=== PATIENT | female | born 1950 | race Caucasian/White ===

== ENCOUNTER → 2018-12-28 | Day surgery (SDC) | payer MEDICARE, BC ==
[2018-12-24 11:43] LABS: BASOPHILS # (AUTO) 0.1 (0.0-0.1); BASOPHILS % 0.6 % (0.0-1.0); EOSINOPHILS # (AUTO) 0.1 (0.0-0.4); EOSINOPHILS % 1.1 % (0.0-6.0); HEMATOCRIT 44.7 % (34.2-44.1); LYMPHOCYTES # (AUTO) 1.8 (1.0-3.2); MEAN CORPUSCULAR HEMOGLOBIN 25.2 pg (28-32); MEAN CORPUSCULAR HGB CONC 31.3 g/dL (31-35); MEAN CORPUSCULAR VOLUME 80.5 fL (81-99); MONOCYTES # (AUTO) 0.6 (0.2-0.8); MONOCYTES % 5.9 % (4.4-11.3); NEUTROPHILS # (AUTO) 6.9 (2.1-6.9); NEUTROPHILS % 73.1 % (38.7-80.0); PLATELET COUNT 375 x10e3/uL (140-360); RED BLOOD COUNT 5.55 x10e6/uL (3.6-5.1); RED CELL DISTRIBUTION WIDTH 14.2 % (11.7-14.4)
[~2018-12-28] MED LIST: AMLODIPINE BESY10 MG PO; BENEFIBER1 EAC1 PO; BENICAR20 MG PO; HYOSCYAMINE 0.125 MG TAB ONE; HYOSCYAMINE SULFATE 0.5 MG/ML INJ ONE; LIDOCAINE HCL 2% LOCAL INJ 5 ML SDV VIAL INJ ONE; LOVASTATIN40 MG PO; MIDAZOLAM HCL 2 MG/2 ML VIAL ONE; PANTOPRAZOLE SO40 MG PO; PROPOFOL IV EMULSION 10 MG/ML 50 ML VIAL ONE; Z.0.CALCIUM 500+VI1 PO; Z.0.DEXILANT60 MG PO; [UNRECOGNIZED DRUG - OTHER] PO
--- OUTSIDE RECORDS SUMMARY | 2018-12-28 08:57 | XMS REPORT ---
Author Author [facility] Address Unknown Phone Unavailable Care Team Providers Care Family Practice Doctor Name Role Phone Unavailable Unavailable Problems This patient has no known problems. Allergies, Adverse Reactions, Alerts This patient has no known allergies or adverse reactions. Medications This patient has no known medications. Results Test Description Test Time Test Comments Text Results Atomic Results Result Comments SCR MAMM BILATERAL BEBA CAD DIGITAL 2018-07-05 16:35:06 - SCR MAMM BILATERAL BEBA CAD DIGITALBILATERAL DIGITAL SCREENING MAMMOGRAM 3D/2D WITH CAD: 07/05/2018CLINICAL: Asymptomatic. Digital breast tomosynthesis was performed in addition to routine CC and MLO views. Current mammographic images were evaluated by either a [facility] or a [facility] ImageChecker CAD (computer aided detection system). Comparison is made to exams dated 06/29/2017 mammogram, 2016 mammogram, and 06/08/2015 mammogram - [facility]-. There are scattered fibroglandular tissues in both breasts. No suspicious mass, architectural distortion, malignant type calcification, or lymph node abnormality detected. Breast architecture is stable compared to prior exams.IMPRESSION: NEGATIVEThere is no mammographic evidence of malignancy. Resume annual screening mammography in one year. Valente lopez/penrad:07/05/2018 16:35:06 Care Provider: Zahira OSBORN, [facility]-FWletter sent: BIRADS 1-2 Normal Mammogram BI-RADS: 1 Negative
[2018-12-28 15:15] VITALS: BP 132/88
--- NOTE | 2018-12-28 15:34 | Operative Report ---
DATE OF PROCEDURE: 12/28/2018 SURGEON: Doroteo Oleary MD PROCEDURE: Colonoscopy and polypectomy. INDICATIONS FOR COLONOSCOPY: Surveillance colonoscopy, personal history of colon polyps. MEDICATIONS: The patient was done under MAC, please see anesthesiologist's note. PROCEDURE IN DETAIL: With the patient in left lateral decubitus position, the flexible fiberoptic Olympus colonoscope was inserted into the rectum with ease and advanced all the way to the cecum. There was a minute polyp noted in the cecum that was removed per cold biopsy forceps. The ascending, transverse and descending grossly appeared to be within normal limits. Some diverticular disease was noted in the distal descending and the sigmoid colon. One polyp was snared. One polyp was hot biopsied from the distal sigmoid colon. The rectum grossly appeared to be within normal limits. The scope was then retroflexed into the distal rectum and small internal hemorrhoids were noted, none of which was actively bleeding. The scope was then straightened out, it was subsequently withdrawn. The patient tolerated the procedure well. IMPRESSION: 1. Cecal polyp, removed per the cold biopsy forceps. 2. Diverticulosis. 3. Sigmoid colon polyps x2, one snared and one hot biopsied. 4. Internal hemorrhoids, none actively bleeding. PLAN: Follow up histology. Initiate high-fiber, low-fat diet. Initiate high-fiber supplement. The patient might benefit from a followup colonoscopy in 5 years. Doroteo Oleary MD [facility] [place]/JONEL /[id number] cc: Martinez Jung MD
== END | disposition home or self-care (01) ==
LOC: OR 08:54
PROVIDERS: ATTEND Internal Medicine Gastroenterology
DX: Z09 Encounter for follow-up examination after completed treatment for conditions other than malignant neoplasm (principal); D12.0 Benign neoplasm of cecum; K57.30 Diverticulosis of large intestine without perforation or abscess without bleeding; K64.8 Other hemorrhoids; K21.9 Gastro-esophageal reflux disease without esophagitis; I10 Essential (primary) hypertension; E78.00 Pure hypercholesterolemia, unspecified; Z88.2 Allergy status to sulfonamides; Z01.810 Encounter for preprocedural cardiovascular examination; Z01.812 Encounter for preprocedural laboratory examination
CPT/HCPCS: 36415; 45380; 45384; 45385; 85025; 88305; 93005; J1980; J2001; J2250; J2704; 45378

== ENCOUNTER 2020-11-11 10:38 | Inpatient (IN) | payer MEDICARE, BC ==
[~2020-11-11] VITALS: Ht 154.9 cm; Wt 67.6 kg
[~2020-11-11 10:38] MED LIST changes: -HYOSCYAMINE 0.125 MG TAB ONE; -HYOSCYAMINE SULFATE 0.5 MG/ML INJ ONE; -LIDOCAINE HCL 2% LOCAL INJ 5 ML SDV VIAL INJ ONE; -MIDAZOLAM HCL 2 MG/2 ML VIAL ONE; -PROPOFOL IV EMULSION 10 MG/ML 50 ML VIAL ONE
[2020-11-11] MEDS ORDERED: SODIUM CHLORIDE 0.9% 1000ML 1,000 ML IV SCH ×2 (11:00→12:30)
[2020-11-11 11:20] LABS: BASOPHILS % 0.4 % (0.0-1.0); HEMATOCRIT 44.9 % (34.2-44.1); HEMOGLOBIN 14.4 g/dL (12.0-16.0); LYMPHOCYTES # (AUTO) 0.9 (1.0-3.2); LYMPHOCYTES % 8.4 % (18.0-39.1); MEAN CORPUSCULAR HEMOGLOBIN 26.7 pg (28-32); MEAN CORPUSCULAR HGB CONC 32.1 g/dL (31-35); MEAN CORPUSCULAR VOLUME 83.3 fL (81-99); MONOCYTES # (AUTO) 0.7 (0.2-0.8); MONOCYTES % 6.4 % (4.4-11.3); NEUTROPHILS # (AUTO) 9.1 (2.1-6.9); NEUTROPHILS % 84.6 % (38.7-80.0); PLATELET COUNT 310 x10e3/uL (140-360); RED BLOOD COUNT 5.39 x10e6/uL (3.6-5.1); RED CELL DISTRIBUTION WIDTH 14.1 % (11.7-14.4)
[2020-11-11 12:04] LABS: ALBUMIN 3.7 g/dL (3.5-5.0); CREATININE, SERUM 5.64 mg/dL (0.57-1.11)
[2020-11-11] MEDS ORDERED: IOPAMIDOL 370 MG/ML 200 ML INFUS..BTL INJ ONE (12:11)
[2020-11-11] MEDS ORDERED: SODIUM CHLORIDE 0.9% 50ML 0 ML ONE (12:11)
[2020-11-11] MEDS ORDERED: ONDANSETRON HCL INJ 2MG/ML 2ML 2 MG/ML VIAL IV PRN (12:30)
[2020-11-11 15:09] LABS: CLARITY,URINE SL CLOUDY (CLEAR); COLOR,URINE YELLOW (YELLOW); KETONES,URINE NEGATIVE (NEGATIVE); LEUKOCYTE ESTERASE ,URINE NEGATIVE (NEGATIVE); NITRITE,URINE NEGATIVE (NEGATIVE); PROTEIN,URINE DIPSTICK 1+ (NEGATIVE); URINE UROBILINOGEN 0.2 mg/dL (0.2 - 1)
[2020-11-11 15:23] LABS: AMORPHOUS SEDIMENT,URINE MODERATE (FEW); BACTERIA,URINE MODERATE /HPF; EPITHELIAL CELLS,URINE MODERATE /LPF; RBC,URINE 0-5 /HPF (0-5)
[2020-11-11 15:40] VITALS: BP 114/42
[2020-11-11] MEDS: SODIUM CHLORIDE 0.9% 1000ML 1,000 ML IV SCH ×2 (15:49→19:10)
[2020-11-11 20:00] VITALS: BP 93/38
[2020-11-11 20:45] VITALS: BP 93/38
[2020-11-11] MEDS ORDERED: SODIUM CHLORIDE 0.9% 500ML 500 ML IV ONE (22:45)
[2020-11-11] MEDS: LOPERAMIDE HCL 2 MG CAP PO PRN (22:57)
[2020-11-12] VITALS (8 sets, daily range): BP systolic 93–158; BP diastolic 44–68
[2020-11-12] MEDS ORDERED: METOCLOPRAMIDE HCL 10 MG/2ML VIAL IV STA (00:36)
[2020-11-12] MEDS ORDERED: PANTOPRAZOLE 40 MG 10ML VIAL IV STA (00:36)
[2020-11-12] MEDS ORDERED: PANTOPRAZOL 40MG/SOD CHL 0.9% 250 ML IV SCH (00:45)
[2020-11-12] MEDS: PANTOPRAZOL 40MG/SOD CHL 0.9% 50 ML IV SCH ×5 (02:02→21:18)
[2020-11-12] MEDS: SODIUM CHLORIDE 0.9% 1000ML 1,000 ML IV SCH ×2 (03:01→09:30)
[2020-11-12 04:59] LABS: BASOPHILS % 0.5 % (0.0-1.0); HEMATOCRIT 38.8 % (34.2-44.1); HEMOGLOBIN 12.2 g/dL (12.0-16.0); LYMPHOCYTES # (AUTO) 0.6 (1.0-3.2); LYMPHOCYTES % 9.9 % (18.0-39.1); MEAN CORPUSCULAR HEMOGLOBIN 26.7 pg (28-32); MEAN CORPUSCULAR HGB CONC 31.4 g/dL (31-35); MEAN CORPUSCULAR VOLUME 84.9 fL (81-99); MONOCYTES # (AUTO) 0.5 (0.2-0.8); MONOCYTES % 7.3 % (4.4-11.3); NEUTROPHILS # (AUTO) 5.1 (2.1-6.9); NEUTROPHILS % 82.1 % (38.7-80.0); PLATELET COUNT 200 x10e3/uL (140-360); RED BLOOD COUNT 4.57 x10e6/uL (3.6-5.1); RED CELL DISTRIBUTION WIDTH 13.9 % (11.7-14.4)
[2020-11-12] MEDS: METOCLOPRAMIDE HCL 10 MG/2ML VIAL IV SCH ×3 (05:25→17:52)
[2020-11-12 05:27] LABS: ANION GAP 15.8 mmol/L (8-16); CALCIUM 8.1 mg/dL (8.4-10.2); CREATININE, SERUM 2.85 mg/dL (0.57-1.11); POTASSIUM 3.8 mmol/L (3.5-5.1)
[2020-11-12] MEDS: METRONIDAZOLE 500MG/NS 100ML 100 ML IV SCH ×3 (05:30→21:34)
[2020-11-12 06:12] LABS: MAGNESIUM 1.8 MG/DL (1.3-2.1); PHOSPHORUS 3.6 MG/DL (2.3-4.7)
[2020-11-12 07:17] LABS: BAND NEUTROPHILS % (MANUAL) 12 %; LYMPHOCYTES % (MANUAL) 11 % (19-48); MONOCYTES % (MANUAL) 3 % (3.4-9.0); NEUTROPHILS % (MANUAL) 70 % (40-74)
[2020-11-12 07:18] LABS: PLATELET ESTIMATE ADEQUATE; PLATELET MORPHOLOGY COMMENT NORMAL; RBC MORPHOLOGY COMMENT NORMAL
[2020-11-12] MEDS: DICYCLOMINE HCL 10 MG CAP PO SCH ×3 (09:00→21:18)
[2020-11-12] MEDS ORDERED: SODIUM CHLORIDE 0.9% 500ML 500 ML IV ONE (10:30)
[2020-11-12] MEDS: SODIUM BICARBONATE 8.4% SYRING 150 ML in DEXTROSE 5% 1,000 ML IV SCH ×3 (11:15→22:45)
[2020-11-12] MEDS: LOPERAMIDE HCL 2 MG CAP PO PRN ×2 (12:30→18:04)
[2020-11-13] VITALS (8 sets, daily range): BP systolic 100–115; BP diastolic 48–54
[2020-11-13] MEDS ORDERED: DICYCLOMINE HCL 20 MG TAB PO STA (00:23)
[2020-11-13] MEDS: METOCLOPRAMIDE HCL 10 MG/2ML VIAL IV SCH ×4 (00:30→17:31)
[2020-11-13] MEDS: LOPERAMIDE HCL 2 MG CAP PO SCH ×4 (00:44→18:20)
[2020-11-13] MEDS: PANTOPRAZOL 40MG/SOD CHL 0.9% 50 ML IV SCH ×5 (03:10→22:08)
[2020-11-13 05:30] LABS: BASOPHILS % 0.6 % (0.0-1.0); EOSINOPHILS # (AUTO) 0.1 (0.0-0.4); EOSINOPHILS % 1.4 % (0.0-6.0); HEMOGLOBIN 11.6 g/dL (12.0-16.0); LYMPHOCYTES # (AUTO) 0.8 (1.0-3.2); MEAN CORPUSCULAR HEMOGLOBIN 27.2 pg (28-32); MEAN CORPUSCULAR HGB CONC 32.2 g/dL (31-35); MEAN CORPUSCULAR VOLUME 84.3 fL (81-99); MONOCYTES # (AUTO) 0.5 (0.2-0.8); MONOCYTES % 12.9 % (4.4-11.3); NEUTROPHILS # (AUTO) 2.2 (2.1-6.9); NEUTROPHILS % 61.8 % (38.7-80.0); PLATELET COUNT 206 x10e3/uL (140-360); RED BLOOD COUNT 4.27 x10e6/uL (3.6-5.1)
[2020-11-13] MEDS: METRONIDAZOLE 500MG/NS 100ML 100 ML IV SCH ×3 (05:49→21:45)
[2020-11-13 05:55] LABS: ALBUMIN 2.8 g/dL (3.5-5.0); ALBUMIN/GLOBULIN RATIO 0.9 (0.8-2.0); ANION GAP 11.5 mmol/L (8-16); CALCIUM 8.5 mg/dL (8.4-10.2); CREATININE, SERUM 1.49 mg/dL (0.57-1.11); POTASSIUM 3.5 mmol/L (3.5-5.1)
[2020-11-13 07:35] LABS: LYMPHOCYTES % (MANUAL) 19 % (19-48); MONOCYTES % (MANUAL) 7 % (3.4-9.0); NEUTROPHILS % (MANUAL) 68 % (40-74)
[2020-11-13] MEDS: DICYCLOMINE HCL 20 MG TAB PO SCH ×4 (08:00→21:40)
[2020-11-13] MEDS: SODIUM BICARBONATE 8.4% SYRING 150 ML in DEXTROSE 5% 1,000 ML IV SCH (10:15)
[2020-11-13] MEDS ORDERED: POTASSIUM CHLORIDE 20 MEQ TAB CR PO ONE (11:35)
[2020-11-13] MEDS: SODIUM CHLORIDE 0.9% 1000ML 1,000 ML IV SCH ×2 (11:39→21:40)
[2020-11-14] VITALS (9 sets, daily range): BP systolic 111–133; BP diastolic 53–61
[2020-11-14] MEDS: CHOLESTYRAMINE 4 GM PACKET PO SCH ×3 (01:09→21:30)
[2020-11-14] MEDS: PANTOPRAZOL 40MG/SOD CHL 0.9% 50 ML IV SCH ×5 (03:49→23:08)
[2020-11-14] MEDS: METOCLOPRAMIDE HCL 10 MG/2ML VIAL IV SCH ×4 (05:44→17:57)
[2020-11-14] MEDS: METRONIDAZOLE 500MG/NS 100ML 100 ML IV SCH ×3 (05:44→22:00)
[2020-11-14] MEDS: DICYCLOMINE HCL 20 MG TAB PO SCH ×3 (05:44→20:30)
[2020-11-14] MEDS: LOPERAMIDE HCL 2 MG CAP PO SCH ×4 (05:44→20:30)
[2020-11-14] MEDS ORDERED: LOPERAMIDE HCL 2 MG CAP PO PRN (06:00)
[2020-11-14] MEDS: SODIUM CHLORIDE 0.9% 1000ML 1,000 ML IV SCH ×2 (06:05→16:29)
[2020-11-14 06:30] LABS: ALBUMIN 2.7 g/dL (3.5-5.0); ANION GAP 11.4 mmol/L (8-16); CALCIUM 7.9 mg/dL (8.4-10.2); CREATININE, SERUM 1.05 mg/dL (0.57-1.11); POTASSIUM 3.4 mmol/L (3.5-5.1)
[2020-11-14] MEDS ORDERED: CHOLESTYRAMINE 4 GM PACKET PO SCH (10:00)
[2020-11-15] VITALS (9 sets, daily range): BP systolic 104–119; BP diastolic 54–60
[2020-11-15] MEDS: METOCLOPRAMIDE HCL 10 MG/2ML VIAL IV SCH ×5 (00:22→23:48)
[2020-11-15] MEDS: LOPERAMIDE HCL 2 MG CAP PO SCH ×4 (00:22→20:30)
[2020-11-15] MEDS: DICYCLOMINE HCL 20 MG TAB PO SCH ×5 (00:22→23:48)
[2020-11-15] MEDS: SODIUM CHLORIDE 0.9% 1000ML 1,000 ML IV SCH ×2 (04:42→14:18)
[2020-11-15] MEDS: PANTOPRAZOL 40MG/SOD CHL 0.9% 50 ML IV SCH ×4 (04:42→22:46)
[2020-11-15] MEDS: METRONIDAZOLE 500MG/NS 100ML 100 ML IV SCH ×3 (05:41→21:30)
[2020-11-15] MEDS: CHOLESTYRAMINE 4 GM PACKET PO SCH ×3 (11:58→21:00)
[2020-11-16] VITALS: BP 109/59
[2020-11-16] MEDS: PANTOPRAZOL 40MG/SOD CHL 0.9% 50 ML IV SCH ×2 (00:09→04:10)
[2020-11-16 04:00] VITALS: BP 131/68
[2020-11-16] MEDS: METOCLOPRAMIDE HCL 10 MG/2ML VIAL IV SCH (05:50)
[2020-11-16] MEDS: METRONIDAZOLE 500MG/NS 100ML 100 ML IV SCH (05:50)
[2020-11-16] MEDS: DICYCLOMINE HCL 20 MG TAB PO SCH (05:50)
[2020-11-16 07:17] VITALS: BP 122/60
[2020-11-16 07:56] VITALS: BP 122/60
[2020-11-16] MEDS ORDERED: CHOLESTYRAMINE 4 GM PACKET PO SCH (08:00)
[2020-11-16 08:07] LABS: BASOPHILS % 0.6 % (0.0-1.0); EOSINOPHILS # (AUTO) 0.1 (0.0-0.4); HEMATOCRIT 35.1 % (34.2-44.1); LYMPHOCYTES # (AUTO) 1.1 (1.0-3.2); MEAN CORPUSCULAR HEMOGLOBIN 25.9 pg (28-32); MEAN CORPUSCULAR HGB CONC 31.3 g/dL (31-35); MEAN CORPUSCULAR VOLUME 82.8 fL (81-99); MONOCYTES # (AUTO) 0.5 (0.2-0.8); MONOCYTES % 7.9 % (4.4-11.3); NEUTROPHILS % 72.5 % (38.7-80.0); PLATELET COUNT 252 x10e3/uL (140-360); RED BLOOD COUNT 4.24 x10e6/uL (3.6-5.1); RED CELL DISTRIBUTION WIDTH 13.5 % (11.7-14.4)
[2020-11-16 08:30] LABS: ALANINE AMINOTRANSFERASE 14 IU/L (0-55); ALBUMIN 2.8 g/dL (3.5-5.0); ALBUMIN/GLOBULIN RATIO 0.9 (0.8-2.0); ALKALINE PHOSPHATASE 46 IU/L (40-150); ANION GAP 12.4 mmol/L (8-16); BLOOD UREA NITROGEN 9 mg/dL (7-26); BUN/CREATININE RATIO 10 (6-25); CALCIUM 8.1 mg/dL (8.4-10.2); CARBON DIOXIDE 24 mmol/L (22-29); CHLORIDE 110 mmol/L (98-107); CREATININE, SERUM 0.92 mg/dL (0.57-1.11); EST GLOMERULAR FILTRATION RATE > 60 ML/MIN (60-); GLUCOSE 88 mg/dL (74-118); MAGNESIUM 1.7 MG/DL (1.3-2.1); POTASSIUM 3.4 mmol/L (3.5-5.1); SODIUM 143 mmol/L (136-145)
[2020-11-16] MEDS ORDERED: POTASSIUM CHLORIDE 20 MEQ TAB CR PO STA (09:06)
[2020-11-16] MEDS ORDERED: FLAGYL500 MG PO (09:59)
== END 2020-11-16 10:37 | disposition home or self-care (01) | DRG 683 ==
LOC: ER 10:51 → ERHOLD 12:35 → MED/SURG 14:40
PROVIDERS: ADMIT Internal Medicine; ATTEND Internal Medicine
DX: N17.9 Acute kidney failure, unspecified (principal); E87.2 Acidosis; A08.4 Viral intestinal infection, unspecified; K21.9 Gastro-esophageal reflux disease without esophagitis; D64.9 Anemia, unspecified; E86.0 Dehydration; E11.22 Type 2 diabetes mellitus with diabetic chronic kidney disease; I12.9 Hypertensive chronic kidney disease with stage 1 through stage 4 chronic kidney disease, or unspecified chronic kidney disease; N18.2 Chronic kidney disease, stage 2 (mild); E78.5 Hyperlipidemia, unspecified; I95.9 Hypotension, unspecified; Z82.49 Family history of ischemic heart disease and other diseases of the circulatory system; Z88.2 Allergy status to sulfonamides; Z20.822 Contact with and (suspected) exposure to COVID-19
CPT/HCPCS: 36415; 71045; 74176; 76770; 80048; 80053; 81001; 82948; 83605; 83630; 83735; 83993; 84100; 85025; 87040; 87045; 87086; 87177; 87493; 93005; 99284; J2405; J2765; J7030; J7070; Q9967; U0002

== ENCOUNTER 2022-04-23 17:00 | Emergency (ER) | payer MEDICARE, BC ==
[~2022-04-23] VITALS: Ht 154.9 cm; Wt 67.6 kg
[~2022-04-23 17:00] MED LIST changes: +FLAGYL500 MG PO
[2022-04-23 17:37] LABS: BASOPHILS % 0.4 % (0.0-1.0); EOSINOPHILS # (AUTO) 0.1 (0.0-0.4); EOSINOPHILS % 0.5 % (0.0-6.0); HEMATOCRIT 48.6 % (34.2-44.1); HEMOGLOBIN 15.2 g/dL (12.0-16.0); LYMPHOCYTES # (AUTO) 1.6 (1.0-3.2); LYMPHOCYTES % 14.9 % (18.0-39.1); MEAN CORPUSCULAR HEMOGLOBIN 27.3 pg (28-32); MEAN CORPUSCULAR HGB CONC 31.3 g/dL (31-35); MEAN CORPUSCULAR VOLUME 87.3 fL (81-99); MONOCYTES # (AUTO) 0.5 (0.2-0.8); NEUTROPHILS # (AUTO) 8.3 (2.1-6.9); NEUTROPHILS % 78.9 % (38.7-80.0); PLATELET COUNT 333 x10e3/uL (140-360); RED BLOOD COUNT 5.57 x10e6/uL (3.6-5.1); RED CELL DISTRIBUTION WIDTH 12.7 % (11.7-14.4)
[2022-04-23] MEDS ORDERED: KETOROLAC TROMETHAMINE 30 MG/ML VIAL ONE (17:37)
[2022-04-23] MEDS ORDERED: ONDANSETRON HCL INJ 2MG/ML 2ML 2 MG/ML VIAL ONE ×3 (17:37→17:38)
[2022-04-23 17:42] LABS: COLOR,URINE YELLOW (YELLOW)
[2022-04-23] MEDS: KETOROLAC TROMETHAMINE 30 MG/ML VIAL IV STA (17:42)
[2022-04-23] MEDS: ONDANSETRON HCL INJ 2MG/ML 2ML 2 MG/ML VIAL IV STA (17:42)
[2022-04-23] MEDS: SODIUM CHLORIDE 0.9% 1000ML 1,000 ML IV ONE (17:42)
[2022-04-23 17:43] LABS: CLARITY,URINE SL CLOUDY (CLEAR); KETONES,URINE NEGATIVE (NEGATIVE); LEUKOCYTE ESTERASE ,URINE SMALL (NEGATIVE); NITRITE,URINE NEGATIVE (NEGATIVE); PROTEIN,URINE DIPSTICK NEGATIVE (NEGATIVE); URINE UROBILINOGEN 0.2 mg/dL (0.2 - 1)
[2022-04-23 17:49] LABS: BACTERIA,URINE MANY /HPF
[2022-04-23 17:50] LABS: EPITHELIAL CELLS,URINE FEW /LPF
[2022-04-23 17:55] LABS: ANION GAP 17.8 mmol/L (8-16); CALCIUM 9.4 mg/dL (8.4-10.2); CREATININE, SERUM 1.17 mg/dL (0.57-1.11); POTASSIUM 3.8 mmol/L (3.5-5.1)
[2022-04-23] MEDS ORDERED: CEFDINIR300 MG PO (19:24)
[2022-04-23] MEDS ORDERED: PYRIDIUM200 MG PO (19:24)
[2022-04-23 20:02] VITALS: BP 125/64
== END 2022-04-23 19:40 | disposition home or self-care (01) ==
LOC: ER 17:10
DX: R10.32 Left lower quadrant pain (principal); N39.0 Urinary tract infection, site not specified; R11.2 Nausea with vomiting, unspecified; I10 Essential (primary) hypertension; E78.5 Hyperlipidemia, unspecified; K21.9 Gastro-esophageal reflux disease without esophagitis
CPT/HCPCS: 36415; 74176; 80048; 81001; 85025; 99284; J1885; J2405; J7030

== ENCOUNTER 2022-04-27 09:10 | Emergency (ER) | payer MEDICARE, BC ==
[~2022-04-27] VITALS: Ht 154.9 cm; Wt 67.6 kg
[~2022-04-27 09:10] MED LIST changes: +CEFDINIR300 MG PO; +PYRIDIUM200 MG PO
[2022-04-27] MEDS ORDERED: SODIUM CHLORIDE 0.9% 1000ML 1,000 ML IV STA (09:21)
[2022-04-27] MEDS ORDERED: KETOROLAC TROMETHAMINE 30 MG/ML VIAL IM STA (09:26)
[2022-04-27] MEDS ORDERED: LIDOCAINE 4% PATCH TP STA (09:26)
[2022-04-27] MEDS ORDERED: DEXAMETHASONE 4 MG TAB PO STA (09:26)
[2022-04-27] MEDS ORDERED: ONDANSETRON HCL INJ 2MG/ML 2ML 2 MG/ML VIAL IV PRN (09:30)
[2022-04-27] MEDS ORDERED: ACETAMINOPHEN 325 MG TAB PO ONE (09:30)
[2022-04-27 09:52] LABS: BASOPHILS # (AUTO) 0.1 (0.0-0.1); BASOPHILS % 0.5 % (0.0-1.0); EOSINOPHILS # (AUTO) 0.1 (0.0-0.4); HEMATOCRIT 49.5 % (34.2-44.1); HEMOGLOBIN 15.3 g/dL (12.0-16.0); LYMPHOCYTES # (AUTO) 1.2 (1.0-3.2); LYMPHOCYTES % 9.3 % (18.0-39.1); MEAN CORPUSCULAR HGB CONC 30.9 g/dL (31-35); MEAN CORPUSCULAR VOLUME 87.3 fL (81-99); MONOCYTES # (AUTO) 0.8 (0.2-0.8); MONOCYTES % 5.8 % (4.4-11.3); NEUTROPHILS # (AUTO) 10.8 (2.1-6.9); NEUTROPHILS % 83.2 % (38.7-80.0); PLATELET COUNT 326 x10e3/uL (140-360); RED BLOOD COUNT 5.67 x10e6/uL (3.6-5.1); RED CELL DISTRIBUTION WIDTH 12.5 % (11.7-14.4)
[2022-04-27] MEDS ORDERED: SODIUM CHLORIDE 0.9% 1000ML 1,000 ML IV SCH (10:00)
[2022-04-27 10:03] LABS: CLARITY,URINE CLOUDY (CLEAR); COLOR,URINE ORANGE (YELLOW); LEUKOCYTE ESTERASE ,URINE LARGE (NEGATIVE); NITRITE,URINE POSITIVE (NEGATIVE)
[2022-04-27 10:04] LABS: KETONES,URINE 1+ (NEGATIVE); PROTEIN,URINE DIPSTICK >=300 (NEGATIVE)
[2022-04-27 10:17] LABS: ALBUMIN 4.4 g/dL (3.5-5.0); ALBUMIN/GLOBULIN RATIO 1.6 (0.8-2.0); ANION GAP 14.6 mmol/L (8-16); CALCIUM 9.6 mg/dL (8.4-10.2); CREATININE, SERUM 1.28 mg/dL (0.57-1.11); POTASSIUM 3.6 mmol/L (3.5-5.1)
[2022-04-27] MEDS ORDERED: CIPRO500 MG PO (10:54)
== END 2022-04-27 11:12 | disposition home or self-care (01) ==
LOC: ER 09:13
DX: N39.0 Urinary tract infection, site not specified (principal); I10 Essential (primary) hypertension; K21.9 Gastro-esophageal reflux disease without esophagitis; E78.5 Hyperlipidemia, unspecified; Z88.2 Allergy status to sulfonamides; Z79.899 Other long term (current) drug therapy
CPT/HCPCS: 36415; 80053; 81003; 83690; 85025; 87086; 99283; J1885; J2405; J7030; J8540